=== PATIENT | female | born 1995 ===

== ENCOUNTER 2020-10-09 23:24 | Emergency (ER) | payer OTHER ==
[~2020-10-09] VITALS: Ht 172.7 cm; Wt 97.5 kg
== END 2020-10-10 02:38 ==
LOC: ER 23:24
DX: O26.892 Other specified pregnancy related conditions, second trimester (principal); S39.012A Strain of muscle, fascia and tendon of lower back, initial encounter; V49.9XXA Car occupant (driver) (passenger) injured in unspecified traffic accident, initial encounter; Y93.89 Activity, other specified; Y92.488 Other paved roadways as the place of occurrence of the external cause; Y99.8 Other external cause status; Z34.02 Encounter for supervision of normal first pregnancy, second trimester

== ENCOUNTER → 2020-10-09 | Outpatient (CLI) | payer OTHER | END | disposition home or self-care (01) | LOC: PRENATAL 10:00 | PROVIDERS: ATTEND Obstetrics & Gynecology Maternal & Fetal Medicine | DX: O24.410 Gestational diabetes mellitus in pregnancy, diet controlled (principal); O36.80X1 Pregnancy with inconclusive fetal viability, fetus 1; Z36.89 Encounter for other specified antenatal screening; Z3A.14 14 weeks gestation of pregnancy ==

== ENCOUNTER → 2020-11-21 | Outpatient (CLI) | payer OTHER | END | disposition home or self-care (01) | LOC: PRENATAL 08:00 | PROVIDERS: ATTEND Obstetrics & Gynecology Maternal & Fetal Medicine | DX: O35.0XX1 Maternal care for (suspected) central nervous system malformation in fetus, fetus 1 (principal); O35.3XX1 Maternal care for (suspected) damage to fetus from viral disease in mother, fetus 1; O98.512 Other viral diseases complicating pregnancy, second trimester; O24.410 Gestational diabetes mellitus in pregnancy, diet controlled; Z36.89 Encounter for other specified antenatal screening; Z3A.20 20 weeks gestation of pregnancy ==

== ENCOUNTER 2020-12-14 13:54 | Outpatient (CLI) | payer OTHER ==
[2020-12-14] MEDS ORDERED: PRENATAL TABLE1 EAC3 PO (14:37)
== END 2020-12-15 14:28 | disposition home or self-care (01) ==
LOC: OBS/DEL 13:54
PROVIDERS: ATTEND Obstetrics & Gynecology
DX: O36.8120 Decreased fetal movements, second trimester, not applicable or unspecified (principal); O26.892 Other specified pregnancy related conditions, second trimester; Z04.3 Encounter for examination and observation following other accident; Z3A.23 23 weeks gestation of pregnancy; W01.198A Fall on same level from slipping, tripping and stumbling with subsequent striking against other object, initial encounter; Y93.89 Activity, other specified; Y92.89 Other specified places as the place of occurrence of the external cause; Y99.8 Other external cause status

== ENCOUNTER → 2020-12-19 | Outpatient (CLI) | payer OTHER ==
[~2020-12-19] MED LIST: ADULT ASPIRIN81 MG PO; PRENATAL TABLE1 EAC3 PO
== END | disposition home or self-care (01) ==
LOC: PRENATAL 09:26
PROVIDERS: ATTEND Obstetrics & Gynecology Maternal & Fetal Medicine
DX: O26.842 Uterine size-date discrepancy, second trimester (principal); O35.0XX1 Maternal care for (suspected) central nervous system malformation in fetus, fetus 1; O24.410 Gestational diabetes mellitus in pregnancy, diet controlled; O34.212 Maternal care for vertical scar from previous cesarean delivery; Z36.89 Encounter for other specified antenatal screening; Z3A.24 24 weeks gestation of pregnancy

== ENCOUNTER 2021-01-15 18:13 | Outpatient (CLI) | payer OTHER ==
[~2021-01-15 18:13] MED LIST changes: -ADULT ASPIRIN81 MG PO
[2021-01-15] MEDS ORDERED: ADULT ASPIRIN81 MG PO (18:37)
== END 2021-01-16 16:27 | disposition home or self-care (01) ==
LOC: OBS/DEL 18:13 → PRENATAL 02-13 13:00
PROVIDERS: ATTEND Obstetrics & Gynecology
DX: O26.843 Uterine size-date discrepancy, third trimester (principal); O24.410 Gestational diabetes mellitus in pregnancy, diet controlled; O60.03 Preterm labor without delivery, third trimester; Z3A.28 28 weeks gestation of pregnancy

== ENCOUNTER 2021-01-19 08:00 | Outpatient (CLI) | payer OTHER ==
[~2021-01-19 08:00] MED LIST changes: +ADULT ASPIRIN81 MG PO
== END 2021-01-19 08:30 | disposition home or self-care (01) ==
LOC: PPH VACUNA 08:00
DX: Z23 Encounter for immunization (principal)

== ENCOUNTER 2021-02-09 08:00 | Outpatient (CLI) | payer OTHER | END 2021-02-09 08:30 | disposition home or self-care (01) | LOC: PPH VACUNA 08:00 | PROVIDERS: ATTEND Emergency Medicine Pediatric Emergency Medicine | DX: Z23 Encounter for immunization (principal) ==

== ENCOUNTER 2021-02-13 13:00 | Outpatient (CLI) | payer OTHER | END 2021-02-13 13:45 | disposition home or self-care (01) | LOC: PRENATAL 13:00 | PROVIDERS: ATTEND Obstetrics & Gynecology Maternal & Fetal Medicine | DX: O26.843 Uterine size-date discrepancy, third trimester (principal); O35.0XX1 Maternal care for (suspected) central nervous system malformation in fetus, fetus 1; O24.410 Gestational diabetes mellitus in pregnancy, diet controlled; O36.8131 Decreased fetal movements, third trimester, fetus 1; Z36.89 Encounter for other specified antenatal screening; Z3A.32 32 weeks gestation of pregnancy ==

== ENCOUNTER 2021-03-13 15:18 | Outpatient (CLI) | payer OTHER | END 2021-03-13 16:45 | disposition home or self-care (01) | LOC: PRENATAL 15:18 | PROVIDERS: ATTEND Obstetrics & Gynecology Maternal & Fetal Medicine | DX: O26.843 Uterine size-date discrepancy, third trimester (principal); O35.0XX1 Maternal care for (suspected) central nervous system malformation in fetus, fetus 1; O24.410 Gestational diabetes mellitus in pregnancy, diet controlled; Z36.89 Encounter for other specified antenatal screening; Z3A.37 37 weeks gestation of pregnancy ==

== ENCOUNTER 2021-03-30 11:13 | Inpatient (IN) | payer OTHER ==
[~2021-03-30] VITALS: Ht 165.1 cm; Wt 98.0 kg
[2021-04-08] MEDS ORDERED: CLOTRIMAZOLE-BE15 G1 (10:41)
[2021-04-08] MEDS ORDERED: PROGESTERONE200 MG (10:41)
[2021-04-11] MEDS ORDERED: IBUPROFEN800 MG PO (08:04)
[2021-04-11] MEDS ORDERED: DOCUSATE SODIU100 MG PO (08:04)
== END 2021-04-11 12:34 | disposition home or self-care (01) | DRG 788 ==
LOC: LDR 04-07 22:30 → OB/GYN 04-08 23:25
PROVIDERS: ADMIT Obstetrics & Gynecology; ATTEND Obstetrics & Gynecology
PROC: 3E0P7VZ Introduction of Hormone into Female Reproductive, Via Natural or Artificial Opening (ICD-10-PCS; 2021-04-07)
PROC: 4A1HXFZ Monitoring of Products of Conception, Cardiac Rhythm, External Approach (ICD-10-PCS; 2021-04-07)
PROC: 10D00Z1 Extraction of Products of Conception, Low, Open Approach (ICD-10-PCS; principal; 2021-04-08 20:15)
DX: O66.2 Obstructed labor due to unusually large fetus (principal); O61.0 Failed medical induction of labor; O24.420 Gestational diabetes mellitus in childbirth, diet controlled; O99.824 Streptococcus B carrier state complicating childbirth; Z37.0 Single live birth; Z3A.39 39 weeks gestation of pregnancy

== ENCOUNTER 2022-06-03 08:18 | Emergency (ER) | payer OTHER ==
[~2022-06-03] VITALS: Ht 165.1 cm; Wt 108.9 kg
[~2022-06-03 08:18] MED LIST changes: +CLOTRIMAZOLE-BE15 G1; +DOCUSATE SODIU100 MG PO; +IBUPROFEN800 MG PO; +PROGESTERONE200 MG
== END 2022-06-03 14:09 | disposition home or self-care (01) ==
LOC: ER 08:18
DX: J20.9 Acute bronchitis, unspecified (principal)